=== PATIENT | male | born 1950 | race Caucasian/White ===

== ENCOUNTER 2016-09-09 13:40 | Inpatient (IN) | payer MEDICARE, OTHER ==
[~2016-09-09] VITALS: Ht 188 cm; Wt 84.6 kg
[2016-09-09 14:55] LABS: HEMOGLOBIN 16.5 g/dL (13.7-18.0)
[2016-09-09 15:06] LABS: ASPARTATE AMINO TRANSFERASE 19 U/L (15-37); BLOOD UREA NITROGEN 30 mg/dL (7-18)
[2016-09-09 15:11] LABS: IS PT STATUS REG ER OR PRE ER? YES
[2016-09-09] MEDS ORDERED: SODIUM CHLORIDE FLUSH 10ML SYR IVF ONE (16:00)
[2016-09-09] MEDS ORDERED: hydrALAzine 20 MG/ML, 1ML IV ONE (16:00)
[2016-09-09] MEDS ORDERED: NEO/5DRO2 LEFTEYE (16:24)
[2016-09-09] MEDS ORDERED: LABETALOL 5MG/ML, 20ML ONE (16:26)
[2016-09-09] MEDS ORDERED: DOCUSATE 100 MG CAPSULE PO PRN (16:30)
[2016-09-09] MEDS ORDERED: MORPHINE SULFATE 4 MG/ML, 1ML IVPush PRN (16:30)
[2016-09-09] MEDS ORDERED: LABETALOL 5MG/ML, 20ML IVPush ONE (16:30)
[2016-09-09] MEDS ORDERED: ACETAMINOPHEN 325 MG TABLET PO PRN (16:30)
[2016-09-09] MEDS ORDERED: LABETALOL 5MG/ML, 20ML IV PRN (16:30)
[2016-09-09] MEDS ORDERED: BISACODYL 10 MG SUPP PR PRN (16:30)
[2016-09-09] MEDS ORDERED: POLYETHYLENE GLYCOL 17 GM PACKET PO PRN (16:30)
[2016-09-09 18:20] LABS: PATH.CAST-FLAG NOT PRESENT; SPERM-FLAG NOT PRESENT; SRC-FLAG NOT PRESENT; XTAL-FLAG NOT PRESENT; YLC-FLAG NOT PRESENT
[2016-09-09 19:25] VITALS: BP_SYST 154; BP_SYST 156; BP_SYST 174; BP_DIAS 104; BP_DIAS 90; BP_DIAS 93
[2016-09-09 19:45] VITALS: BP 159/99
[2016-09-09] MEDS: NEO/POLY/HC OPHTH SUSP 7.5ML LEFTEYE SCH (19:58)
[2016-09-09] MEDS: FAMOTIDINE 20 MG TABLET PO SCH (19:59)
[2016-09-09] MEDS: METOPROLOL TARTRATE 25 MG TABLET PO SCH (19:59)
[2016-09-09] MEDS: HEPARIN 5,000 UNITS/ML, 1ML SQ SCH (19:59)
[2016-09-09 20:35] VITALS: BP 123/82
[2016-09-09 22:06] VITALS: BP 138/87
[2016-09-09 22:17] LABS: IS PT STATUS REG ER OR PRE ER? NO
[2016-09-09] MEDS ORDERED: SODIUM CHLORIDE 0.9% 1,000 ML IV PRN (22:30)
[2016-09-09 22:34] VITALS: BP 161/99
[2016-09-09 22:35] VITALS: BP 152/93
[2016-09-10] VITALS (13 sets, daily range): BP systolic 129–189; BP diastolic 62–99
[2016-09-10] MEDS: NEO/POLY/HC OPHTH SUSP 7.5ML LEFTEYE SCH ×5 (01:53→23:11)
[2016-09-10] MEDS: HEPARIN 5,000 UNITS/ML, 1ML SQ SCH ×3 (03:29→17:09)
[2016-09-10 04:58] LABS: HEMOGLOBIN 13.4 g/dL (13.7-18.0)
[2016-09-10 05:25] LABS: IS PT STATUS REG ER OR PRE ER? NO
[2016-09-10 05:32] LABS: ASPARTATE AMINO TRANSFERASE 14 U/L (15-37); BLOOD UREA NITROGEN 34 mg/dL (7-18)
[2016-09-10] MEDS: FAMOTIDINE 20 MG TABLET PO SCH ×2 (09:22→20:55)
[2016-09-10] MEDS: METOPROLOL TARTRATE 25 MG TABLET PO SCH ×2 (09:22→20:55)
[2016-09-11] VITALS (12 sets, daily range): BP systolic 138–220; BP diastolic 76–111
[2016-09-11] MEDS: HEPARIN 5,000 UNITS/ML, 1ML SQ SCH ×3 (00:56→16:50)
[2016-09-11 05:47] LABS: BLOOD UREA NITROGEN 33 mg/dL (7-18)
[2016-09-11] MEDS: NEO/POLY/HC OPHTH SUSP 7.5ML LEFTEYE SCH ×4 (05:48→21:31)
[2016-09-11 05:55] LABS: HEMOGLOBIN 14.4 g/dL (13.7-18.0)
[2016-09-11] MEDS: AMLODIPINE 5 MG TABLET PO SCH ×2 (08:09→08:10)
[2016-09-11] MEDS: FAMOTIDINE 20 MG TABLET PO SCH ×2 (08:10→21:32)
[2016-09-11] MEDS: METOPROLOL TARTRATE 25 MG TABLET PO SCH ×2 (08:10→21:33)
[2016-09-11] MEDS: hydrALAzine 20 MG/ML, 1ML IV PRN (12:56)
[2016-09-11] MEDS: LOSARTAN 25MG TABLET PO SCH (15:40)
[2016-09-12] VITALS (12 sets, daily range): BP systolic 149–192; BP diastolic 82–111
[2016-09-12] MEDS: HEPARIN 5,000 UNITS/ML, 1ML SQ SCH ×3 (00:37→16:32)
[2016-09-12] MEDS: hydrALAzine 20 MG/ML, 1ML IV PRN ×2 (02:54→13:36)
[2016-09-12 06:01] LABS: BLOOD UREA NITROGEN 34 mg/dL (7-18)
[2016-09-12] MEDS: NEO/POLY/HC OPHTH SUSP 7.5ML LEFTEYE SCH ×4 (06:13→21:27)
[2016-09-12] MEDS: METOPROLOL TARTRATE 25 MG TABLET PO SCH ×2 (08:04→21:27)
[2016-09-12] MEDS: AMLODIPINE 5 MG TABLET PO SCH (08:04)
[2016-09-12] MEDS: LOSARTAN 25MG TABLET PO SCH (08:05)
[2016-09-12] MEDS ORDERED: LOSARTAN 50MG TABLET PO ONE (15:00)
[2016-09-12] MEDS: FAMOTIDINE 20 MG TABLET PO SCH (21:27)
[2016-09-12 21:53] LABS: BLOOD UREA NITROGEN 38 mg/dL (7-18)
[2016-09-13] MEDS: HEPARIN 5,000 UNITS/ML, 1ML SQ SCH ×3 (00:15→16:16)
[2016-09-13 02:02] VITALS: BP 181/88
[2016-09-13 05:17] VITALS: BP 148/83
[2016-09-13] MEDS: NEO/POLY/HC OPHTH SUSP 7.5ML LEFTEYE SCH ×4 (05:43→22:06)
[2016-09-13 07:39] VITALS: BP 151/86
[2016-09-13] MEDS: LOSARTAN 50MG TABLET PO SCH (08:12)
[2016-09-13] MEDS: METOPROLOL TARTRATE 25 MG TABLET PO SCH ×2 (08:12→22:06)
[2016-09-13] MEDS: AMLODIPINE 5 MG TABLET PO SCH (08:12)
[2016-09-13] MEDS ORDERED: REGADENOSON 0.4 MG/5 ML SYRINGE ONE (08:29)
[2016-09-13 13:14] VITALS: BP 176/96
[2016-09-13 14:42] VITALS: BP 180/98
[2016-09-13 18:36] VITALS: BP 147/97
[2016-09-13] MEDS: FAMOTIDINE 20 MG TABLET PO SCH (22:06)
[2016-09-14] MEDS: HEPARIN 5,000 UNITS/ML, 1ML SQ SCH ×2 (01:54→08:54)
[2016-09-14 01:58] VITALS: BP 146/78
[2016-09-14] MEDS: NEO/POLY/HC OPHTH SUSP 7.5ML LEFTEYE SCH ×2 (05:53→11:22)
[2016-09-14 07:20] VITALS: BP 134/74
[2016-09-14] MEDS: AMLODIPINE 5 MG TABLET PO SCH (08:55)
[2016-09-14] MEDS: LOSARTAN 50MG TABLET PO SCH (08:55)
[2016-09-14] MEDS: METOPROLOL TARTRATE 25 MG TABLET PO SCH (08:57)
[2016-09-14] MEDS ORDERED: METO25TA35 PO (11:42)
[2016-09-14] MEDS ORDERED: ATOR10TA9 PO (11:42)
[2016-09-14] MEDS ORDERED: ASPI-621 PO (11:42)
[2016-09-14] MEDS ORDERED: LOSA50TA2 PO (11:42)
[2016-09-14] MEDS ORDERED: AMLO5TAB2 PO (11:42)
[2016-09-14 12:33] VITALS: BP 151/85
[2016-09-14] MEDS ORDERED: ATORVASTATIN 10 MG TABLET PO SCH (21:00)
== END 2016-09-14 14:31 | disposition home or self-care (01) | DRG 305 ==
LOC: ED 15:12 → EDIP 16:28 → 5SO 18:55 → DCLOUNGE 09-14 14:10
PROVIDERS: ADMIT Hospitalist; ATTEND Hospitalist
PROC: 0T9B70Z Drainage of Bladder with Drainage Device, Via Natural or Artificial Opening (ICD-10-PCS; principal; 2016-09-09)
DX: I16.0 Hypertensive urgency (principal); E78.5 Hyperlipidemia, unspecified; R80.9 Proteinuria, unspecified; K76.89 Other specified diseases of liver; Z79.899 Other long term (current) drug therapy; Z83.3 Family history of diabetes mellitus; Z87.442 Personal history of urinary calculi; I12.9 Hypertensive chronic kidney disease with stage 1 through stage 4 chronic kidney disease, or unspecified chronic kidney disease; N18.9 Chronic kidney disease, unspecified
CPT/HCPCS: 36415; 71020; 76705; 78452; 80048; 80053; 80061; 81001; 82043; 82570; 83036; 84156; 84484; 85025; 93005; 93017; 93306; 93975; 96374; J1644; J2785; A9502; C9898; J0360; J7030

== ENCOUNTER 2016-10-19 02:50 | Emergency (ER) | payer MEDICARE, OTHER ==
[~2016-10-19] VITALS: Ht 188 cm; Wt 85.0 kg
[~2016-10-19 02:50] MED LIST: AMLO5TAB2 PO; ASPI-621 PO; ATOR10TA9 PO; LOSA50TA2 PO; METO25TA35 PO; NEO/5DRO2 LEFTEYE
[2016-10-19 03:25] LABS: BLOOD UREA NITROGEN 41 mg/dL (7-18)
[2016-10-19 03:31] LABS: IS PT STATUS REG ER OR PRE ER? YES
[2016-10-19 04:31] VITALS: BP 145/83
== END 2016-10-19 04:41 | disposition home or self-care (01) ==
LOC: ED 03:03
DX: R60.0 Localized edema (principal); I10 Essential (primary) hypertension; Z87.891 Personal history of nicotine dependence
CPT/HCPCS: 36415; 71010; 80048; 82040; 83880; 84484; 85025; 93005; 99285

== ENCOUNTER → 2020-12-30 | Outpatient (CLI) | payer MEDICARE, OTHER ==
[~2020-12-30] MED LIST changes: +AMLO-150 PO; -AMLO5TAB2 PO; -ASPI-621 PO; +ASPI81TA45 PO
== END | disposition home or self-care (01) ==
LOC: CFH 09:44
PROVIDERS: ATTEND Internal Medicine Cardiovascular Disease
DX: I08.8 Other rheumatic multiple valve diseases (principal); I11.9 Hypertensive heart disease without heart failure; R93.1 Abnormal findings on diagnostic imaging of heart and coronary circulation
CPT/HCPCS: 93306; 93356

== ENCOUNTER 2021-01-31 13:28 | Emergency (ER) | payer MEDICARE, OTHER ==
[~2021-01-31] VITALS: Ht 188 cm; Wt 88.3 kg
[2021-01-31 14:13] LABS: BASOPHILS % (AUTO) 1 % (0-1); EOSINOPHILS % (AUTO) 1 % (1-7); HCT (SEDRATE) 39.6 % (39.2-51.8); LYMPHOCYTES % (AUTO) 12 % (22-44); MEAN CORPUSCULAR HEMOGLOBIN 32.1 pg (27.5-34.5); MEAN CORPUSCULAR HGB CONC 33.8 g/dL (33.2-36.2); MEAN PLATELET VOLUME 8.6 fL (7.4-10.4); MONOCYTES % (AUTO) 7 % (2-9); NEUTROPHILS % (AUTO) 79 % (42-75); PLATELET COUNT 196 x10^3/uL (130-400); RED BLOOD COUNT 4.22 x10^6/uL (4.38-5.82); RED CELL DISTRIBUTION WIDTH 13.7 % (9.4-14.8)
[2021-01-31 14:31] LABS: ANION GAP 8 mmol/L (5-15); CALCIUM 9.3 mg/dL (8.5-10.1); CHLORIDE 118 mmol/L (98-107)
--- NOTE | 2021-01-31 14:54 | NUR ---
[employer]: PT TO ROOM FROM [facility]
[2021-01-31 14:59] VITALS: BP 155/78
--- NOTE | 2021-01-31 15:00 | NUR ---
PT RESTING IN [facility]. RLE WITH SWELLING AND REDNESS. PT STATES IT HAS BEEN PAINFUL OVER THE LAST FEW DAYS BUT HE RESTED YESTERDAY AND TODAY THE PAIN IS BETTER UNTIL HE WALKS. NO OPEN WOUNDS NOTED TO RLE.
== END 2021-01-31 15:48 ==
LOC: ED 15:13
DX: R60.0 Localized edema (principal); M10.071 Idiopathic gout, right ankle and foot; I10 Essential (primary) hypertension; M10.9 Gout, unspecified; Z87.891 Personal history of nicotine dependence
CPT/HCPCS: 36415; 80048; 84550; 85025; 85651; 86140; 99284